=== PATIENT | female | born 2005 | race Caucasian/White ===

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

== ENCOUNTER → 2024-12-08 | Outpatient (CLI) | payer BC | END | disposition home or self-care (01) | LOC: RADNMMAIN 13:19 | PROVIDERS: ATTEND Surgery | DX: Z53.9 Procedure and treatment not carried out, unspecified reason (principal) ==

== ENCOUNTER → 2024-12-14 | Outpatient (CLI) | payer BC ==
--- NOTE | 2024-12-14 09:43 | NM ---
EXAMINATION TYPE: NM hepatobiliary w CCK DATE OF EXAM: 12/14/2024 9:21 AM COMPARISON: None CLINICAL INDICATION:Female, 19 years old with history of RUQ pain; TECHNIQUE: The patient was given 4.82 mCi of Technetium 99m-Mebrofenin as a radiotracer and multiple scintigraphic images were obtained of the abdomen. Gallbladder function was also assessed after the administration of 1.7 mcg of Kinevac (cholecystokinin) and additional scintigraphic images were obtai deepthi of the abdomen. A region of interest was drawn over the gallbladder and a timing activity curve w as generated. The gallbladder ejection fraction was calculated. Kinevac: 1.7 mcg FINDINGS: Normal uptake of radiotracer was identified within the liver with excretion into the hepatic and comm on biliary ducts within 4 min. There was normal progressive washout of the liver over the course of t he study. Radiotracer uptake within the gallbladder at 26 minutes as well as small bowel activity was identified at 4 minutes. Maximum calculated gallbladder ejection fraction is: 96% at 28minutes (Normal gallbladder ejection fraction is > 35%) IMPRESSION: 1. Normal hepatobiliary scan. 2. Greater than 80% ejection fraction in 10 minutes compatible with hyperkinsia [facility], , 12/14/2024 9:41 AM
== END | disposition home or self-care (01) ==
LOC: RADNMMAIN 07:20
PROVIDERS: ATTEND Surgery
DX: R10.11 Right upper quadrant pain (principal)
CPT/HCPCS: 78227; A9537; J2805